=== PATIENT | female | born 2000 | race Caucasian/White ===

== ENCOUNTER 2025-07-23 18:00 | Inpatient (IN) | payer MEDICAID, OTHER, SELFPAY ==
[2025-07-23 19:25] VITALS: BMI 29.9
[2025-07-23] MEDS ORDERED: Diphenoxylate HCl/Atropine Tablet PO PRN ×2 (20:15)
[2025-07-23] MEDS ORDERED: Methylergonovine 0.2 MG/ML VIAL IM PRN (20:15)
[2025-07-23] MEDS ORDERED: Carboprost 250 MCG/ML AMP IM PRN (20:15)
[2025-07-23] MEDS ORDERED: hydrALAZINE 20 MG/ML VIAL SLOW IVP PRN (20:15)
[2025-07-23] MEDS ORDERED: Ondansetron PF 4 MG/2 ML Vial IVP PRN (20:15)
[2025-07-23] MEDS ORDERED: Ibuprofen 800 MG TAB PO PRN (20:15)
[2025-07-23] MEDS ORDERED: Acetaminophen 500 MG TAB PO PRN (20:15)
[2025-07-23] MEDS ORDERED: Tranexamic Acid 1,000 MG/10 ML VIAL IVP PRN (20:15)
[2025-07-23] MEDS ORDERED: Lidocaine 1% (PF) 30 ML VIAL SC PRN (20:15)
[2025-07-23] MEDS ORDERED: Oxytocin 30 units/NS 500 ML 500 ML IV SCH ×3 (20:15)
[2025-07-23 20:29] LABS: Hematocrit 35.5 % (34.9-44.5); Hemoglobin 12.1 g/dL (12.0-15.5); Mean Corpuscular Hemoglobin 30.0 pg (27.0-33.0); Mean Corpuscular Volume 87.9 fL (81.6-98.3); Platelet Count 278 10x3/uL (150-450); Red Blood Cell (RBC) Count 4.04 10x6/uL (3.90-5.03); White Blood Cell (WBC) Count 10.27 10x3/uL (3.5-10.5)
[2025-07-23 20:54] LABS: Syphilis Antibody Index 0.07 S/CO (<1.00 Non-Reactive)
[2025-07-23 20:56] LABS: Hep B Surf Ag - L&D Non-Reactive S/CO (NonReactive)
[2025-07-24] MEDS: fentaNYL/Ropivacaine Epidural 100 ML ONE (03:16)
[2025-07-24] MEDS ORDERED: diphenhydrAMINE 50 MG/ML VIAL IVP PRN (03:36)
[2025-07-24] MEDS ORDERED: Acetaminophen 325 MG TAB PO PRN (03:36)
[2025-07-24] MEDS ORDERED: Ondansetron PF 4 MG/2 ML Vial IVP PRN (03:36)
[2025-07-24] MEDS ORDERED: Communication Order-Pharmacy FS SCH (03:45)
[2025-07-24] MEDS: fentaNYL 2 mcg/Ropivacaine 0.2% Epidural 100 ML CADD EPIDURAL SCH (15:08)
[2025-07-24 22:07] LABS: Analyzer IN Cardio CS NICU; RapidComm Collect By RN
[2025-07-24 22:10] LABS: Analyzer IN Cardio CS NICU; RapidComm Collect By RN; pH (Cord, venous) 7.250 (7.250-7.350)
[2025-07-24] MEDS ORDERED: hydrALAZINE 20 MG/ML VIAL SLOW IVP PRN (22:23)
[2025-07-24] MEDS ORDERED: Bisacodyl 10 MG SUPP PR PRN (22:23)
[2025-07-24] MEDS ORDERED: Milk Of Magnesia 30 ML UDCUP PO PRN (22:23)
[2025-07-24] MEDS ORDERED: Lanolin Ointment 7 GM TUBE TOP PRN (22:23)
[2025-07-24] MEDS: Ibuprofen 800 MG TAB PO PRN (23:49)
[2025-07-25] MEDS: Ibuprofen 800 MG TAB PO PRN (08:21)
[2025-07-25] MEDS: Benzocaine-Menthol 82.5 ML CAN TOP PRN (11:38)
[2025-07-25] MEDS: Ferrous Sulfate 325 MG TAB PO SCH (12:09)
[2025-07-25] MEDS: Ibuprofen 800 MG TAB PO SCH (17:43)
[2025-07-26 07:48] VITALS: BP 107/63; TEMP 98.5
[2025-07-26] MEDS ORDERED: Bupivacaine HCl 0.5%/Epinephrine 1:200,000/PF 30 ml Vial ONE (12:00)
[2025-07-26] MEDS ORDERED: Bupivacaine/Epinephrine 0.25% 30 ML VIAL ONE (12:00)
[2025-07-26] MEDS ORDERED: Bupivacaine 0.25% HCL 30 ML VIAL ONE (12:00)
== END 2025-07-26 13:20 | disposition home or self-care (01) | DRG 807 ==
LOC: CSHLD 18:41 → CSHPP 07-25 00:45
PROVIDERS: ADMIT Family Medicine; ATTEND Family Medicine
PROC: 10907ZC Drainage of Amniotic Fluid, Therapeutic from Products of Conception, Via Natural or Artificial Opening (ICD-10-PCS; 2025-07-23)
PROC: 10H07YZ Insertion of Other Device into Products of Conception, Via Natural or Artificial Opening (ICD-10-PCS; 2025-07-23)
PROC: 10D07Z6 Extraction of Products of Conception, Vacuum, Via Natural or Artificial Opening (ICD-10-PCS; principal; 2025-07-24)
PROC: 0KQM0ZZ Repair Perineum Muscle, Open Approach (ICD-10-PCS; 2025-07-24)
PROC: 3E0E7GC Introduction of Other Therapeutic Substance into Products of Conception, Via Natural or Artificial Opening (ICD-10-PCS; 2025-07-24)
PROC: 0UQMXZZ Repair Vulva, External Approach (ICD-10-PCS; 2025-07-24)
DX: O36.5930 Maternal care for other known or suspected poor fetal growth, third trimester, not applicable or unspecified (principal); Z37.0 Single live birth; O76 Abnormality in fetal heart rate and rhythm complicating labor and delivery; O71.82 Other specified trauma to perineum and vulva; O70.1 Second degree perineal laceration during delivery; Z3A.38 38 weeks gestation of pregnancy; Z79.899 Other long term (current) drug therapy; Z90.89 Acquired absence of other organs
CPT/HCPCS: 36415; 82805; 85027; 86780; 86850; 86900; 86901; 87340; J0665; J3105